=== PATIENT | male | born 1965 | race Caucasian/White ===

== ENCOUNTER 2022-02-23 18:45 | Emergency (ER) | payer SELFPAY ==
[~2022-02-23] VITALS: Ht 162.6 cm; Wt 56.2 kg
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
[2022-02-23] MEDS ORDERED: ONDANSETRON HCL/PF 4 MG/2 ML VIAL ONE (20:18)
[2022-02-23] MEDS ORDERED: TDAP [DIPH/PERTUSSIS/TET] 0.5 ML VIAL IM ONE ×2 (20:18→20:30)
--- NOTE | 2022-02-23 20:19 | NUR ---
PATIENT AT CT
[2022-02-23] MEDS ORDERED: LIDOCAINE 1%-EPI 1:100,000 20 ML VIAL TP ONE (20:30)
[2022-02-23] MEDS ORDERED: ONDANSETRON HCL/PF - ER 4 MG/2 ML VIAL IM ONE (20:30)
[2022-02-23] MEDS ORDERED: LIDOCAINE 1%-EPI 1:100,000 20 ML VIAL ONE (20:32)
--- NOTE | 2022-02-24 08:00 | NUR ---
PATIENT ASLEEP BUT AROUSABLE, AAOX2, BREATHING EVEN AND NON LABORED
--- NOTE | 2022-02-24 10:02 | NUR ---
AMEYA MACK AT BEDSIDE
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
[2022-02-24 15:23] VITALS: BP 110/75
--- NOTE | 2022-02-24 15:24 | NUR ---
Pt awake/appropriate and answer simple questions back to pre admission baseline. Refusing placement at this time and was given resources by AMEYA Irving. Lunch given. Verbal instructions for discharge given eloped prior to signing
[2022-03-01] MEDS ORDERED: VANC125C11 PO (09:25)
== END 2022-02-24 15:24 | disposition home or self-care (01) ==
LOC: ER 18:47
DX: S01.111A Laceration without foreign body of right eyelid and periocular area, initial encounter (principal); F10.129 Alcohol abuse with intoxication, unspecified; W18.39XA Other fall on same level, initial encounter; Y93.89 Activity, other specified; Y92.89 Other specified places as the place of occurrence of the external cause; Y99.8 Other external cause status; Y90.9 Presence of alcohol in blood, level not specified
CPT/HCPCS: 12011; 70450; 82962; 90471; 90715; 96372; 99291; A6403; J2405 ×2; J3490

== ENCOUNTER 2022-02-24 18:49 | Inpatient (IN) | payer MEDICAID ==
[~2022-02-24] VITALS: Ht 162.6 cm; Wt 60.0 kg
[2022-02-24] MEDS ORDERED: IV NS 0.9% 1,000 ML BAG IV ONE (19:30)
[2022-02-24] MEDS ORDERED: TDAP [DIPH/PERTUSSIS/TET] 0.5 ML VIAL IM ONE ×2 (19:30→19:53)
[2022-02-24] MEDS ORDERED: LIDOCAINE 1%-EPI 1:100,000 20 ML VIAL TP ONE (19:30)
[2022-02-24] MEDS ORDERED: LIDOCAINE 1%-EPI 1:100,000 20 ML VIAL ONE (19:53)
--- NOTE | 2022-02-24 20:06 | NUR ---
20G IV LINE ESTABLISHED AT [facility]
[2022-02-24 20:09] LABS: HEMATOCRIT 43 % (39-51); HEMOGLOBIN 15.1 g/dL (13.5-17.5); LYMPHOCYTES # (AUTO) 0.4 K/uL (0.8-4.8); LYMPHOCYTES % (AUTO) 3.2 % (20.0-44.0); MEAN CORPUSCULAR HGB CONC 35 g/dl (31.0-36.0); MEAN CORPUSCULAR VOLUME 81 fL (80-96); MONOCYTES % (AUTO) 7.9 % (2.0-12.0); NEUTROPHILS # (AUTO) 10.9 K/uL (1.8-8.9); NEUTROPHILS % (AUTO) 88.9 % (43.0-81.0); PLATELET COUNT (AUTO) 368 K/uL (150-450); RED BLOOD CELL COUNT(AUTO) 5.26 MIL/uL (4.5-6.0); WHITE BLOOD COUNT (AUTO) 12.3 K/uL (4.3-11.0)
[2022-02-24 20:13] LABS: CALCIUM, SERUM 8.9 mg/dL (8.5-10.1); CREATININE 7.4 mg/dL (0.6-1.3); GLUCOSE 161 mg/dL (74-106); POTASSIUM 3.4 mmol/L (3.5-5.1)
[2022-02-24 20:14] LABS: SERUM AMMONIA 12 umol/L (11-32)
[2022-02-24 20:16] LABS: CARBON DIOXIDE 45 mmol/L (21-32); CHLORIDE 55 mmol/L (98-107); SODIUM SERUM 113 mmol/L (136-145)
[2022-02-24 20:17] LABS: UREA NITROGEN, BLOOD 146 mg/dL (7-18)
[2022-02-24 20:19] LABS: ALANINE AMINOTRANSFERASE 25 U/L (12-78); ALBUMIN 3.2 g/dL (3.4-5.0); ALCOHOL, BLOOD < 3 mg/dL (0-0); ALKALINE PHOSPHATASE 92 U/L (46-116); ASPARTATE AMINOTRANSFERASE 43 U/L (15-37); BILIRUBIN,DIRECT 0.2 mg/dL (0.0-0.2); BILIRUBIN,TOTAL 0.5 mg/dL (0.2-1.0); TOTAL PROTEIN, SERUM 8.1 g/dL (6.4-8.2)
[2022-02-24 20:30] LABS: THYROID STIMULATING HORMONE 0.442 uIU/mL (0.358-3.74)
--- NOTE | 2022-02-24 20:34 | NUR ---
PA AT BEDSIDE FOR SUTURE
--- NOTE | 2022-02-24 21:00 | NUR ---
COVID SWAB AND MRSA SWAB COLLECTED AND SENT TO LAB
--- NOTE | 2022-02-24 21:06 | NUR ---
20G IV LINE ESTABLISHED AT [facility] PER ICU PROTOCOL
--- NOTE | 2022-02-24 21:09 | NUR ---
RN AT BEDSIDE FOR EKG
[2022-02-24] MEDS ORDERED: DEXTROSE 50%-WATER 50 ML DISP.SYRIN ONE (21:19)
[2022-02-24 21:24] LABS: BAND % (MANUAL) 20 % (0.0-5.0); LYMPHOCYTES % (MANUAL) 6 % (16-48); MONOCYTES % (MANUAL) 9 % (0-11.0); NEUTROPHILS % (MANUAL) 65 (42-76)
[2022-02-24] MEDS ORDERED: DEXTROSE 50%-WATER 50 ML DISP.SYRIN IV ONE (21:30)
--- NOTE | 2022-02-24 21:40 | NUR ---
DR REYES TAMAYO PER DR GREENE
[2022-02-24] MEDS ORDERED: LIDOCAINE 2% JEL UROJET 10 ML MM ONE (21:50)
--- NOTE | 2022-02-24 22:04 | NUR ---
FRIEDMAN CATHETER INSERTED
--- NOTE | 2022-02-24 22:15 | NUR ---
URINE COLLECTED AND SENT TO LAB
--- NOTE | 2022-02-24 22:27 | NUR ---
REPORT GIVEN TO YOSSI
[2022-02-24 22:54] LABS: BILIRUBIN,URINE NEGATIVE (NEGATIVE); COLOR,URINE YELLOW (YELLOW); LEUKOCYTE ESTERASE ,URINE NEGATIVE (NEGATIVE); NITRITE, URINE NEGATIVE (NEGATIVE); PROTEIN,URINE TRACE mg/dl (NEGATIVE); UGLUCOSE NEGATIVE (NEGATIVE); UROBILINOGEN,URINE 0.2 EU/dL (0.2)
[2022-02-24] MEDS ORDERED: ZOLPIDEM TARTRATE 5 MG TABLET PO PRN (23:00)
[2022-02-24] MEDS ORDERED: ACETAMINOPHEN 325 MG TABLET PO PRN (23:00)
[2022-02-24] MEDS ORDERED: ONDANSETRON HCL/PF 4 MG/2 ML VIAL IVP PRN (23:00)
[2022-02-24] MEDS ORDERED: MAGNESIUM HYDROXIDE 30 ML UDC PO PRN (23:00)
[2022-02-24] MEDS ORDERED: MAG HYDROX/AL HYDROX/SIMETH 30 ML UDC PO PRN (23:00)
[2022-02-24] MEDS ORDERED: Z GUARD REMEDY 4 OZ OINT TP PRN (23:00)
--- NOTE | 2022-02-24 23:06 | NUR ---
PT TO ICU VIA ALS PROTOCOL.
[2022-02-24 23:20] LABS: CREATININE, URINE 84.8 MG/DL (30.0-125.0); URINE TOTAL PROTEIN 57.5 mg/dL (0-11.9)
[2022-02-24 23:22] LABS: ABG BASE EXCESS 17.2 mmol/L; ABG OXYGEN SATURATION 97.8 % (92.0-98.5); ABG PCO2 49.3 mmHg (35.0-45.0); ABG PH 7.549 (7.350-7.450); ABG PO2 100.7 mmHg (75.0-100.0); AaDO2 40.8 mmHg; COHb 1.2 % (0.5-1.5); MetHb 0.2 % (0.0-1.5); O2Hb 96.4 % (94.0-97.0); SITE, ABG Left Radial; VENT MODE, BG 2 LNC
[2022-02-24 23:25] LABS: BACTERIA,URINE None seen /HPF (None Seen); RBC,URINE 0-2 /HPF (0-2); SQUAMOUS EPITHELIAL CELL,UR Moderate /HPF (None Seen); WBC,URINE 0-2 /HPF (0-3)
[2022-02-24] MEDS: IV NS 0.9% 1,000 ML IV PRN (23:27)
--- NOTE | 2022-02-24 23:35 | NUR ---
RN NOTE RECEIVED PATIENT FROM ER VIA GURNEY. PATIENT OPENS EYES SIMULTANEOUSLY AND ABLE TO FOLLOW COMMAND. PATIENT APPEARS LETHARGIC. ABLE TO ANSWER YES OR NO QUESTIONS. BREATHING EVEN AND UNLABORED ON 2L/MIN VIA NASAL CANNULA. TOLERATING WELL WITH OXYGEN SATURATION OF 97 PERCENT WITH GOOD WAVEFORM ON BEDSIDE MONITOR. SKIN WARM AND DRY, FINGERTIPS COLD. ORAL TEMPERATURE WNL. SKIN ASSESSMENT DONE. WOUNDS CLEANED AND COVERED. WOUND PICTURES FILED IN CHART. INDWELLING FRIEDMAN CATHETER INTACT. DRAINING YELLOW URINE. RIGHT AC 20G AND LEFT AC 20G PIV. INTACT. NO INFILTRATION. PATIENT DENIES PAIN WHEN LAYING STILL BUT NOTED WITH FACIAL GRIMICING WHEN TURNED. PROVIDED WITH BED BATH. BED LOW, IN LOCKED POSITION. CALL LIGHT WITHIN REACH. WILL CONTINUE TO MONITOR NEUROLOGICAL STATUS.
[2022-02-25] VITALS (25 sets, daily range): BP systolic 101–132; BP diastolic 42–78
--- NOTE | 2022-02-25 00:35 | NUR ---
BELONGINGS PLACED IN BEDSIDE CABINET BELONGINGS SHEET UPDATED. FERNANDO IN [place] COUNTED WITH CHARGE NURSE DAPHNE. PER ER. PATIENTS PANTS WERE SOILED AND THROWN AWAY.
[2022-02-25] MEDS: BLOOD SUGAR DIAGNOSTIC 1 EACH STRIP IN SCH ×6 (00:39→21:00)
[2022-02-25 01:11] LABS: CALCIUM, SERUM 7.8 mg/dL (8.5-10.1); CREATININE 6.7 mg/dL (0.6-1.3)
[2022-02-25 04:11] LABS: BASOPHILS % (AUTO) 0.1 % (0.0-2.0); EOSINOPHILS % (AUTO) 0.1 % (0.0-6.0); HEMATOCRIT 37 % (39-51); HEMOGLOBIN 12.7 g/dL (13.5-17.5); LYMPHOCYTES # (AUTO) 0.9 K/uL (0.8-4.8); LYMPHOCYTES % (AUTO) 7.8 % (20.0-44.0); MEAN CORPUSCULAR HGB CONC 35 g/dl (31.0-36.0); MEAN CORPUSCULAR VOLUME 82 fL (80-96); MONOCYTES # (AUTO) 0.8 K/uL (0.1-1.30); MONOCYTES % (AUTO) 6.7 % (2.0-12.0); NEUTROPHILS # (AUTO) 10.1 K/uL (1.8-8.9); NEUTROPHILS % (AUTO) 85.3 % (43.0-81.0); PLATELET COUNT (AUTO) 342 K/uL (150-450); RED BLOOD CELL COUNT(AUTO) 4.45 MIL/uL (4.5-6.0); WHITE BLOOD COUNT (AUTO) 11.8 K/uL (4.3-11.0)
[2022-02-25 04:26] LABS: ALBUMIN 2.7 g/dL (3.4-5.0); BILIRUBIN,TOTAL 0.4 mg/dL (0.2-1.0); CALCIUM, SERUM 7.8 mg/dL (8.5-10.1); CREATININE 6.5 mg/dL (0.6-1.3); MAGNESIUM 2.6 mg/dL (1.8-2.4); TOTAL PROTEIN, SERUM 6.7 g/dL (6.4-8.2)
[2022-02-25 04:37] LABS: POTASSIUM 2.9 mmol/L (3.5-5.1); THYROID STIMULATING HORMONE 0.265 uIU/mL (0.358-3.74)
[2022-02-25 04:40] LABS: PHOSPHORUS 8.2 mg/dL (2.5-4.9)
[2022-02-25] MEDS: IV NS 0.9% 1,000 ML IV PRN (05:01)
--- NOTE | 2022-02-25 05:37 | NUR ---
RN NOTE LAB RESULT OF POTASSIUM 2.9. INFORMED MD BARN HAND, ABHILASH. PER MD, GIVE 60 MEQ IV KCL. NEW ORDER NOTED AND CARRIED OUT.
[2022-02-25] MEDS: POTASSIUM CL. PREMIX PERIPHER. 50 ML IV SCH ×6 (05:58→11:00)
--- NOTE | 2022-02-25 07:21 | NUR ---
WOUND CARE CONSULT: PT PRESENTS WITH MULTIPLE WOUNDS PRESENT ON ADMISSION INCLUDING HEAD LACERATIONS WHICH ARE CLOSED, RT EYEBROW CLOSED LACERATION, DISCOLORATION TO RT SIDE OF FACE, LEFT HIP DEEP TISSUE INJURY IN EVOLUTION, SACRAL DTI IN EVOLUTION, RT HIP DISCOLORATION, LEFT ELBOW SKIN TEAR AND DRY ABRASIONS TO KNEES, ALL PRESENT ON ADMISSION. DR ARIAS NOTIFIED OF SURGICAL CONSULT REQUEST. RECOMMENDATIONS MADE FOR SKIN PROTECTION. DISCUSSED WITH NURSING STAFF. ELDER LEYVA NOTED. IN AGREEMENT WITH PLAN OF CARE.
--- NOTE | 2022-02-25 07:24 | NUR ---
RN OPENING NOTES PT RESTING IN BED A/O X 1-2 GREEK SPEAKING. PT ON 2L VIA NC SATING AT 99%. TELE MONITOR READS SR. PT HAS FRIEDMAN DRAINING CLEAR YELLOW URINE. DIET IS NPO. IV ACCESS NOTED AT RAC 20G, L AC 20G, NS RUNNING AT 125ML/HR. IV POTASSIUM RUNNING. SECOND BAG INFUSING. WILL CONT. TO MONITOR THROUGHOUT SHIFT.
[2022-02-25] MEDS: PANTOPRAZOLE 40 MG VIAL IV SCH (08:08)
--- NOTE | 2022-02-25 08:23 | NUR ---
SWALLOW EVAL COMPLETE WITH ST. ST WILL START PT ON PUREE DIET.
--- NOTE | 2022-02-25 10:45 | NUR ---
APPLIED FOAM HEAD DONUT BEHIND PT'S HEAD TO PROTECT SUTURES.
--- NOTE | 2022-02-25 12:23 | NUR ---
BLOOD SUGAR 116
--- NOTE | 2022-02-25 12:30 | NUR ---
RECEIVED BEDSIDE REPORT FROM SHANNEN FOR CONTINUITY OF PATIENT'S CARE. PATIENT ASLEEP COMFORTABLY ON BED, NO APPARENT DISTRESS NOTED AT THIS TIME. WILL CONTINUE PATIENT MONITORING.
[2022-02-25] MEDS ORDERED: IV NS 0.9% 1,000 ML IV PRN (12:32)
--- NOTE | 2022-02-25 14:30 | NUR ---
PER CHARGE NURSE OKAY TO CANCEL THE TSH LAB DRAW TODAY DUE TO TSH TEST ALREADY DONE IN THE MORNING SCHEDULE. LAB DEPT. STAFF AWARE.
[2022-02-25 15:37] LABS: EOSINOPHIL,URINE None Seen
[2022-02-25 16:02] LABS: CALCIUM, SERUM 7.6 mg/dL (8.5-10.1); CREATININE 5.1 mg/dL (0.6-1.3)
[2022-02-25 16:13] LABS: BAND % (MANUAL) 8 % (0.0-5.0); LYMPHOCYTES % (MANUAL) 15 % (16-48); MONOCYTES % (MANUAL) 9 % (0-11.0); NEUTROPHILS % (MANUAL) 68 (42-76)
--- NOTE | 2022-02-25 16:17 | NUR ---
DR. NUÑEZ MADE AWARE REGARDING RECENT CRITICAL BMP LAB RESULTS : CHLORIDE, CO2, BUN, POTASSIUM AND THE REST OF THE BMP DONE THIS AFTERNOON. AWAITING RESPONSE FROM
--- NOTE | 2022-02-25 16:27 | NUR ---
DR. NUÑEZ WITH NEW ORDER NOTED OF IVF WITH KCL.
[2022-02-25] MEDS ORDERED: Potassium Chloride 10 MEQ in IV NS 0.9% 1,000 ML IV PRN (16:30)
[2022-02-25] MEDS ORDERED: Potassium Chloride 10 MEQ in IV NS 0.9% 1,000 ML IV SCH (16:36)
--- NOTE | 2022-02-25 16:41 | NUR ---
SS consult: SS Consult requested for homelessness and alcohol abuse. The pt. is a 56-year-old male patient who was admitted yesterday earlier int he day for alcohol intoxication and was readmitted as pt. was found with blood on his face per EMR. Per EMR, pt. has Hx. of meth & alcohol use. Pt. was admitted to ICU for Severe hyponatremia, acute encephalopathy, MADONNA per EMR. Upon SS consult, the pt. is Alert & Oriented x 2 and makes good eye contact. The pt. appears disheveled is malodorous and remains calm & cooperative. Pt. denies SI/HI and denies hallucinations. Pt. states that he was having visual and auditory hallucinations days ago. The pt.'s thought process and thought content are WNL. The pt. has Depressed mood & affect. Pt.'s speech is low and quiet. AMEYA explored pt.'s living situation. Patient stated that he has been experiencing homeless for the past 5 months and [facility]. SW explored pt.'s mental health Hx. Patient denies any diagnosis or taking any medication for his mental health. AMEYA explored pt.'s drug & ETOH use. Pt. stated he drinks about 2 beers daily "when i am feeling well". SW completed brief substance abuse intervention. Pt. stated he does not believe alcohol is a problem for him but stated he has fallen before due to intoxication. AMEYA offered referral to alcohol rehab and pt. was receptive. SW will refer pt. to [facility]. Per pt. he is ambulatory and independent with all his ADL's. AMEYA explored pt.'s support system. Pt. states she has no support system. Plan: AMEYA provided pt. with homeless resources and pt. accepted them. Pt. signed homeless waiver and it was placed in the pt.'s chart. AMEYA will refer pt. to [facility] alcohol rehab. Year-round shelters: [place] [address] [place] [place] [address] ; [facility] [facility] [place] [address] [place] [address]; [facility] [facility] Katoemb2654 [facility]. [facility] [address] Hygiene: [facility]: [address] [place] [address]. [place] ; [facility] [address]37 [facility] [place] ; [facility] 6901 [place] Jemma [place] . Food Resources: [place] [facility] at [facility]- [address]00 [address]. [place]; Meet Each Need with Dignity ([facility]) 25340 [facility]; [facility] Food Pantry 4337 [facility]; [facility] 2234 [facility]. Mental Health resources provided: [facility] [address] [place], [place] [phone] ; [facility] Mental Health Center, Inc. 53659 [facility] [address], [place], [place] [phone] ; [facility] Urgent Care Center 79029 [facility] [place], [place] [phone] ; [facility] [address] [place], [place] [phone] Healthcare Clinics: [facility] 6551 [facility], [address] [place]. [place] ; [facility] Clinic 6801 [facility] [address] [place] [address]; [facility], [facility] [place] [address] [place] [address] [phone] Counseling--Outpatient [facility] 4419 [facility], [place] [address] (Specializes in in-depth psychotherapy for emotional distress: anxiety, depression, interpersonal conflicts, life transitions, childhood abuse) [facility] [address]28 [place] [address] (Assist with solving problem marital difficulties, separation & divorce, aging parents, & grief, chronic & terminal illness) [facility] [address] [place] [address] (Deal with loss & grief, anxiety, marital difficulties) Homebound/Mental Health Services 96643 [facility], [address] [place] [address] (Provide in-home mental services to people who are incapable of leaving their homes) Organization for Needs of the Elderly Senior Service/Resource Center 87905 Haris[address] [place] [address] [facility] [address] [place] [address] PSYCHIATRIC OUTPATIENT SERVICES [facility] Partial Hospitalization and Intensive Outpatient Program (Managed Care and [place] Only) [address] [facility] [address]652 [facility] Partial Hospitalization and Outpatient Program 19293 [facility]. [address] [place], [place] [phone] Replaced by [facility] [place] Inc [address]1828 [facility]. [address] [place] [address] [facility] Partial Hospitalization and Outpatient Program [address] [place], [place] [phone] Substance Abuse resources provided included: [facility] Substance Abuse Self-Helpline ([facility]) ; CRI -HELP 78888 [facility]. [place] [address] ; [facility] 45290 [facility] [address] ; [facility] Rehabilitation Program 76291 Chrisney vdMemorial [facility]loan [facility] [address] ; [facility] [place] [address] [facility] [address] ; [facility] 4940 [facility] [address] ; [facility] 909 [facility] [address] ; [facility] Substance Abuse Helpline([facility] ; [facility] Family Counseling ; [facility] Dewitt; [facility]; Cri-Help [place]; I-ADARP Inter Agency Drug Abuse Recovery Marvin [place]; [place] [facility] [place]; [facility] [place]; [facility] [place]; [facility], [facility]. [place]; Alcoholics Anonymous -SFV; Vt-Qnnv-Olhxoce ; Marijuana Anonymous -SFV; Narcotics Anonymous [email or web address];
[2022-02-25 16:51] LABS: BILIRUBIN,URINE NEGATIVE (NEGATIVE); COLOR,URINE YELLOW (YELLOW); LEUKOCYTE ESTERASE ,URINE TRACE (NEGATIVE); NITRITE, URINE NEGATIVE (NEGATIVE); PROTEIN,URINE NEGATIVE (NEGATIVE); UGLUCOSE NEGATIVE (NEGATIVE); UROBILINOGEN,URINE 0.2 EU/dL (0.2)
[2022-02-25 16:54] LABS: BACTERIA,URINE RARE /HPF (None Seen)
[2022-02-25] MEDS: Potassium Chloride 10 MEQ in IV NS 0.9% 1,000 ML IV SCH ×2 (17:00→18:19)
--- NOTE | 2022-02-25 17:10 | NUR ---
[place] HARVESTING SUPERVISOR RECEIVING NOTES RECEIVED PATIENT IN STABLE CONDITION, V/S: BP 112/60, HR SINUS RHYTHM 72, T 98.2, O2 98% ON 2 LPM O2 VIA NASAL CANNULA. A/O X 2, ABLE TO MAKE NEEDS KNOWN. PATIENT WITH MULTIPLE SKIN ABRASIONS NOTED AND DOCUMENTED. L AC # 20 G AND R AC # 20 G SL CLEAN, INTACT, AND FLUSHING WELL. TELE MONITOR IN PLACE READING NSR 72. FRIEDMAN CATHETER IN PLACE DRAINING CLEAR YELLOW URINE TO GRAVITY. SAFETY MEASURES IN PLACE: BED IN LOWEST LOCKED POSITION, SIDE RAILS UP X 2, CALL LIGHT WITHIN REACH. WILL CONTINUE TO MONITOR.
--- NOTE | 2022-02-25 17:10 | NUR ---
PATIENT WAS TRANSFERRED TO TELEMETRY UNIT -ROOM 313 IN STABLE CONDITION, NO APPARENT DISTRESS NOTED, BEDSIDE REPORT GIVEN TO BRENDA-RN FOR CONTINUITY OF CARE.
--- NOTE | 2022-02-25 19:00 | NUR ---
LOGGING CREW SUPERVISOR CLOSING NOTES PATIENT LAYING IN BED, A/O X 2, ABLE TO MAKE NEEDS KNOWN, TOLERATING WELL ON 2 LPM O2 VIA NASAL CANNULA. R AC # 20 SL CLEAN, INTACT, AND FLUSHING WELL. L AC # 20 G IV CLEAN, INTACT, AND INFUSING NS W 10 mEq POTASSIUM @ 150 ML/HR. PATIENT WITH 350 ML CLEAR YELLOW URINE OUTPUT NOTED AT END OF SHIFT. TELE MONITOR IN PLACE READING NSR 71. SAFETY MEASURES IN PLACE: BED IN LOWEST LOCKED POSITION, SIDE RAILS UP X 2, CALL LIGHT WITHIN REACH. ALL NEEDS MET. WILL ENDORSE TO FEATURE WRITER FOR SYDNIE.
--- NOTE | 2022-02-25 19:15 | NUR ---
CREDIT CARD ANALYST OPENING NOTES: RECEIVED PATIENT IN BED, ASLEEP, EASILY AROUSABLE. NO S/S OF DISTRESS NOTED. NO COMPLAIN OF PAIN. CALL LIGHT WITHIN REACH. BED ALARM ON. BED IN LOWEST AND LOCKED POSITION.HOB ELEVATED. WITH FRIEDMAN CATHETER INTACT. SEIZURE PRECAUTION. WITH TELE MONITOR WITH SR.
--- NOTE | 2022-02-25 22:17 | NUR ---
blood sugar checked= 96, no insulin given.
[2022-02-26] MEDS: BLOOD SUGAR DIAGNOSTIC 1 EACH STRIP IN SCH ×4 (01:00→12:26)
[2022-02-26] MEDS: Potassium Chloride 10 MEQ in IV NS 0.9% 1,000 ML IV SCH ×5 (01:42→21:21)
[2022-02-26 04:00] VITALS: BP 117/62
[2022-02-26 04:27] VITALS: BP 117/62
--- NOTE | 2022-02-26 05:21 | NUR ---
blood sugar newysjs=140, no insulin given.
--- NOTE | 2022-02-26 06:43 | NUR ---
BOTANY TEACHER CLOSING NOTES: PATIENT IN BED, ASLEEP, EASILY AROUSABLE. NO S/S OF DISTRESS NOTED. NO COMPLAIN OF PAIN. CALL LIGHT WITHIN REACH. BED ALARM ON. BED IN LOWEST AND LOCKED POSITION. HOB ELEVATED. HEELS OFFLOADED. TURNED AND REPOSITIONED [id number].
[2022-02-26 06:56] LABS: CALCIUM, SERUM 7.8 mg/dL (8.5-10.1); CREATININE 3.5 mg/dL (0.6-1.3); POTASSIUM 2.9 mmol/L (3.5-5.1)
--- NOTE | 2022-02-26 07:00 | NUR ---
CHASER TAR OPENING NOTES PATIENT LAYING IN BED, A/O X 2, ABLE TO MAKE NEEDS KNOWN, TOLERATING WELL ON 2 LPM O2 VIA NASAL CANNULA. R AC # 20 SL CLEAN, INTACT, AND FLUSHING WELL. L AC # 20 G IV CLEAN, INTACT, AND INFUSING NS W 10 mEq POTASSIUM @ 150 ML/HR. TELE MONITOR IN PLACE READING NSR 71. SAFETY MEASURES IN PLACE: BED IN LOWEST LOCKED POSITION, SIDE RAILS UP X 2, CALL LIGHT WITHIN REACH. WILL CONTINUE TO MONITOR.
--- NOTE | 2022-02-26 07:22 | NUR ---
INFORMED DR REESE RE: BUN 100.
--- NOTE | 2022-02-26 07:51 | NUR ---
PATIENT FOUND RESTING WITHOUT DISTRESS ON 2 L NC WITH SAT OF 97% . NO SOB NOTED. Addendum: 02/26/22 at 0752 by DEBORAH MERAZ RT Amended: Links added.
[2022-02-26 08:00] VITALS: BP 123/66
[2022-02-26] MEDS: PANTOPRAZOLE 40 MG VIAL IV SCH (08:43)
[2022-02-26] MEDS ORDERED: DEXTROSE 50%-WATER 50 ML DISP.SYRIN IV PRN (13:30)
[2022-02-26 16:00] VITALS: BP 120/64
[2022-02-26] MEDS ORDERED: Potassium Chloride 10 MEQ in IV NS 0.9% 1,000 ML IV PRN (17:30)
[2022-02-26] MEDS: BLOOD SUGAR DIAGNOSTIC 1 EACH STRIP VI SCH ×2 (17:46→21:34)
--- NOTE | 2022-02-26 19:00 | NUR ---
GROCERY DELIVERER CLOSING NOTES PATIENT LAYING IN BED, A/O X 2, ABLE TO MAKE NEEDS KNOWN, TOLERATING WELL ON 2 LPM O2 VIA NASAL CANNULA. R AC # 20 SL CLEAN, INTACT, AND FLUSHING WELL. L AC # 20 G IV CLEAN, INTACT, AND INFUSING NS W 10 mEq POTASSIUM @ 150 ML/HR. TELE MONITOR IN PLACE. SAFETY MEASURES IN PLACE: BED IN LOWEST LOCKED POSITION, SIDE RAILS UP X 2, CALL LIGHT WITHIN REACH. ALL NEEDS MET. WILL ENDORSE TO ASSEMBLER FILTERS FOR SYDNIE. Addendum: 02/26/22 at 1955 by BRENDA MUNOZ RN PATIENT NOTED WITH 800 ML CLEAR, YELLOW URINE OUTPUT VIA FRIEDMAN CATHETER AT END OF SHIFT. 350 ML CLEAR YELLOW URINE EMPTIED AT APPROXIMATELY 9 AM
--- NOTE | 2022-02-26 19:20 | NUR ---
ROLL ICER OPENING NOTES: RECEIVED PATIENT IN BED, AWAKE, A/O X4. NO S/S OF DISTRESS NOTED. NO COMPLAIN OF PAIN. CALL LIGHT WITHIN REACH. BED ALARM ON. BED IN LOWEST AND LOCKED POSITION. PATIENT IS HAVING DIARRHEA. WITH BEDSIDE COMMODE.WITH O2 AT 3L/MIN NASAL CANNULA. WITH FRIEDMAN CATHETER INTACT. ON TELE MONITOR WITH SR62.
[2022-02-26 20:00] VITALS: BP 116/65
[2022-02-26] MEDS: *INSULIN REGULAR(HUMULIN R)HUM 100 UNIT/ML VIAL SQ PRN (21:34)
--- NOTE | 2022-02-26 21:34 | NUR ---
BLOOD SUGAR [id number], NO INSULIN GIVEN.
[2022-02-27] VITALS: BP 112/52
--- NOTE | 2022-02-27 01:44 | NUR ---
PATIENT HAD 3X DIARRHEA NOW, STARTED TODAY IN THE DAYSHIFT, INFORMED DR REESE.
[2022-02-27 04:00] VITALS: BP 106/56
[2022-02-27] MEDS: Potassium Chloride 10 MEQ in IV NS 0.9% 1,000 ML IV SCH ×3 (04:15→19:40)
[2022-02-27 04:20] LABS: BASOPHILS % (AUTO) 0.3 % (0.0-2.0); EOSINOPHILS % (AUTO) 1.5 % (0.0-6.0); HEMATOCRIT 30 % (39-51); HEMOGLOBIN 10.2 g/dL (13.5-17.5); LYMPHOCYTES # (AUTO) 1.1 K/uL (0.8-4.8); LYMPHOCYTES % (AUTO) 12.5 % (20.0-44.0); MEAN CORPUSCULAR HGB CONC 34 g/dl (31.0-36.0); MEAN CORPUSCULAR VOLUME 85 fL (80-96); NEUTROPHILS # (AUTO) 6.5 K/uL (1.8-8.9); NEUTROPHILS % (AUTO) 74.7 % (43.0-81.0); PLATELET COUNT (AUTO) 343 K/uL (150-450); RED BLOOD CELL COUNT(AUTO) 3.55 MIL/uL (4.5-6.0); WHITE BLOOD COUNT (AUTO) 8.7 K/uL (4.3-11.0)
[2022-02-27 04:30] LABS: CALCIUM, SERUM 7.7 mg/dL (8.5-10.1)
[2022-02-27] MEDS: BLOOD SUGAR DIAGNOSTIC 1 EACH STRIP VI SCH ×4 (06:36→22:00)
[2022-02-27] MEDS: INSULIN REGULAR, HUMAN 100 UNIT/ML 3 ML VIAL SQ PRN (06:38)
--- NOTE | 2022-02-27 07:00 | NUR ---
CHAPLAINCY OPENING NOTES PATIENT LAYING IN BED, A/O X 3, ABLE TO MAKE NEEDS KNOWN, TOLERATING WELL ON 2 LPM O2 VIA NASAL CANNULA. R AC # 20 SL CLEAN, INTACT, AND FLUSHING WELL. L AC # 20 G IV CLEAN, INTACT, AND INFUSING NS W 10 mEq POTASSIUM @ 150 ML/HR. TELE MONITOR IN PLACE READING NSR 64. SAFETY MEASURES IN PLACE: BED IN LOWEST LOCKED POSITION, SIDE RAILS UP X 2, CALL LIGHT WITHIN REACH. WILL CONTINUE TO MONITOR.
[2022-02-27 08:00] VITALS: BP 109/61
[2022-02-27] MEDS: PANTOPRAZOLE 40 MG TABLET.DR PO SCH (09:18)
[2022-02-27] MEDS ORDERED: POTASSIUM CHLORIDE 20 MEQ TAB.PRT.SR PO SCH (11:00)
[2022-02-27] MEDS ORDERED: POTASSIUM CHLORIDE 10 MEQ TABLET.SA PO ONE (11:00)
[2022-02-27 16:00] VITALS: BP 113/63
--- NOTE | 2022-02-27 19:00 | NUR ---
MS RN CLOSING NOTES PATIENT LAYING IN BED IN LOW LOCKED POSITION CALL LIGHTS WITHIN REACH, NO COMPLAIN OF PAIN AND DISCOMFORT AT THIS TIME ON O2 INHALATION AT 2LPM SATURATING WELL, NO RESP DISTRESS OBSERVED, WITH IV LINE AT RAC#20 WITH KCL 10MEQ @150ML PER HOUR INFUSING WELL, PATIENT IS MONITORED FOR CDIFF, STOOL SAMPLE SENT TO LAB TODAY. FRIEDMAN CATHETER WAS REMOVED TODAY. ALL NEEDS MET. WILL ENDORSE TO SECRETARY TO THE VICE PRESIDENT FOR SYDNIE.
--- NOTE | 2022-02-27 19:45 | NUR ---
MS RN OPENING NOTE: RECEIVED PATIENT AWAKE IN BED BED IN LOW POSITION CALL LIGHTS WITHIN REACH, NO COMPLAIN OF PAIN AND DISCOMFORT AT THIS TIME ON O2 INHALATION AT 2LPM SATURATING WELL, NO RESP DISTRESS OBSERVED, WITH IV LINE AT RAC#20 WITH KCL 10MEQ @150ML PER HOUR INFUSING WELL, PATIENT IS MONITORED FOR CDIFF, PATIENT KEPT CLEAN AND DRY ALL NEEDS MET WILL CONTINUE TO MONITOR.
[2022-02-27 21:08] VITALS: BP 130/69
--- NOTE | 2022-02-27 22:36 | NUR ---
RN NOTES: BS-124 NO INSULIN GIVEN- OUT OF PARAMETER
[2022-02-28] MEDS: Potassium Chloride 10 MEQ in IV NS 0.9% 1,000 ML IV SCH ×4 (00:43→21:57)
[2022-02-28 04:05] LABS: BASOPHILS % (AUTO) 0.3 % (0.0-2.0); EOSINOPHILS % (AUTO) 1.3 % (0.0-6.0); HEMATOCRIT 30 % (39-51); HEMOGLOBIN 10.4 g/dL (13.5-17.5); LYMPHOCYTES # (AUTO) 1.6 K/uL (0.8-4.8); LYMPHOCYTES % (AUTO) 18.6 % (20.0-44.0); MEAN CORPUSCULAR HGB CONC 34 g/dl (31.0-36.0); MEAN CORPUSCULAR VOLUME 86 fL (80-96); MONOCYTES # (AUTO) 1.2 K/uL (0.1-1.30); MONOCYTES % (AUTO) 13.9 % (2.0-12.0); NEUTROPHILS # (AUTO) 5.7 K/uL (1.8-8.9); NEUTROPHILS % (AUTO) 65.9 % (43.0-81.0); PLATELET COUNT (AUTO) 396 K/uL (150-450); RED BLOOD CELL COUNT(AUTO) 3.54 MIL/uL (4.5-6.0); WHITE BLOOD COUNT (AUTO) 8.6 K/uL (4.3-11.0)
[2022-02-28 04:25] LABS: ALBUMIN 1.9 g/dL (3.4-5.0); BILIRUBIN,TOTAL 0.2 mg/dL (0.2-1.0); CALCIUM, SERUM 7.2 mg/dL (8.5-10.1); CREATININE 1.5 mg/dL (0.6-1.3); PHOSPHORUS 1.4 mg/dL (2.5-4.9); POTASSIUM 3.5 mmol/L (3.5-5.1); TOTAL PROTEIN, SERUM 5.1 g/dL (6.4-8.2)
[2022-02-28 04:30] LABS: MAGNESIUM 1.2 mg/dL (1.8-2.4)
--- NOTE | 2022-02-28 04:50 | NUR ---
RN NOTES: RECEIVED A CRITICAL LAB RESULT OF MAGNESIUM V-1.2 NOTIFY HOSPITALIST AND ORDER MAGNESIUM OXIDE 800MG PO ONE TTIME NOTED AND CARRY OUT
[2022-02-28] MEDS ORDERED: MAGNESIUM OXIDE 400 MG TABLET PO ONE (05:00)
--- NOTE | 2022-02-28 06:34 | NUR ---
RN CLOSING NOTES: PATIENT SLEEP IN BED COMFORTABLY, BED IN LOW POSITION CALL LIGHTS WITHIN REACH, NO COMPLAIN OF PAIN AND DISCOMFORT AT THIS TIME, ON O2 INHALATION AT 3LPM SATURATING WELL, ON ILEOSTOMY TUBE CHANGE CLEANSE AND DRY, ON FRIEDMAN CATHETER-1250 WITH IV LINE AT OMAR ML WITH ONGOING NSS@75ML/HOUR INFUSING WELL, PATIENT KEPT CLEAN AND DRY ALL NEEDS MET WILL CONTINUE TO MONITOR. Addendum: 02/28/22 at 0636 by DANIELLE SAMSON RN RN NOTES: WRONG POSTING CLOSING INTENDED FOR 323-2
--- NOTE | 2022-02-28 06:37 | NUR ---
RN CLOSING NOTES: PATIENT SLEEP IN BED COMFORTABLY AROUSABLE TO VERBAL STIMULI, BED IN LOW POSITION CALL LIGHTS WITHIN REACH, NO COMPLAIN OF PAIN AND DISCOMFORT AT THIS TIME ON O2 INHALATION AT 3LPM SATURATING WELL, WITH IV LINE AT LAC#20 WITH ONGOING POTASSIUM CHLORIDE 10MEQ ON [id number] AT 150ML/HR, INFUSING WELL, PATIENT KEPT CLEAN AND DRY ALL NEEDS MET ENDORSE TO INCOMING SHIFT.
--- NOTE | 2022-02-28 07:30 | NUR ---
MS RN OPENING NOTES RECEIVED PATIENT AWAKE AND COMFORTABLY LYING IN BED. A/O X 4, UKRAINIAN SPEAKER. NO RESP DISTRESS AND DISCOMFORT AT THIS MOMENT; PATIENT IS IN 2LPM AND SATURATING WELL. NO COMPLAIN OF PAIN AND DISCOMFORT AT THIS TIME. SAFETY MEASURES INITIATED: BED IN LOW POSITION, CALL LIGHTS WITHIN REACH. WITH IV LINE AT RAC#20 WITH [id number] @150ML PER HOUR INFUSING WELL. PATIENT HAD A BOWEL MOVEMENT: LOOSE AND SMELLY; MONITORED FOR C-DIFF. PATIENT KEPT CLEAN AND DRY. ALL NEEDS MET. WILL CONTINUE TO MONITOR FOR SYDNIE.
[2022-02-28] MEDS: PANTOPRAZOLE 40 MG TABLET.DR PO SCH (08:06)
[2022-02-28] MEDS: BLOOD SUGAR DIAGNOSTIC 1 EACH STRIP VI SCH ×4 (08:33→22:09)
--- NOTE | 2022-02-28 08:36 | NUR ---
PATIENT ON 2 L NC O2 WITHOUT DISTRESS. IN STABLE CONDITION Addendum: 02/28/22 at 0837 by DEBORAH MERAZ RT Amended: Links added.
[2022-02-28 08:39] VITALS: BP 115/66
[2022-02-28] MEDS ORDERED: K PHOS NEUTRAL 250 MG TABLET PO ONE (11:00)
[2022-02-28] MEDS: Magnesium 1GM/D5W 100ML PREMIX 100 ML IV SCH ×2 (11:34→13:53)
[2022-02-28] MEDS ORDERED: PANT40TA49 PO (11:59)
[2022-02-28] MEDS ORDERED: ACET325T53 PO (11:59)
[2022-02-28] MEDS ORDERED: NUTR113P PO (11:59)
[2022-02-28 16:39] VITALS: BP 112/67
[2022-02-28] MEDS: VANCOMYCIN HCL 125 MG/2.5 ML ORAL.SUSP PO SCH (18:25)
[2022-02-28] MEDS: INSULIN REGULAR, HUMAN 100 UNIT/ML 3 ML VIAL SQ PRN (18:34)
--- NOTE | 2022-02-28 19:05 | NUR ---
MS RN OPENING NOTES: RECEIVED PATIENT IN BED, AWAKE, A/O X4. NO S/S OF DISTRESS NOTED. NO COMPLAIN OF PAIN. CALL LIGHT WITHIN REACH. BED ALARM ON. BED IN LOWEST AND LOCKED POSITION. CONTACT ISOLATION FOR C-DIFF. URINAL AT THE BEDSIDE.
--- NOTE | 2022-02-28 19:37 | NUR ---
MS RN CLOSING NOTES PATIENT IS AWAKE AND COMFORTABLY LYING IN BED. A/O X 4, TURKISH SPEAKER. NO RESP DISTRESS AND DISCOMFORT AT THIS MOMENT; PATIENT IS IN 2LPM AND SATURATING WELL. NO COMPLAIN OF PAIN AND DISCOMFORT AT THIS TIME. PATIENT'S D/C ORDER ON HOLD D/T C-DIFF, DR. BAUM WAS INFORMED. SAFETY MEASURES INITIATED: BED IN LOW POSITION, CALL LIGHTS WITHIN REACH. WITH IV LINE AT RAC#20 WITH [id number] @150ML PER HOUR INFUSING WELL. PATIENT HAD A 1 BOWEL MOVEMENT IN MY SHIFT: LOOSE AND SMELLY. PATIENT KEPT CLEAN AND DRY. ALL NEEDS MET. WILL ENDORSE TO INCOMING SHIFT FOR SYDNIE.
[2022-02-28 20:00] VITALS: BP 107/58
[2022-02-28] MEDS: *INSULIN REGULAR(HUMULIN R)HUM 100 UNIT/ML VIAL SQ PRN (22:09)
--- NOTE | 2022-02-28 23:42 | NUR ---
YULISSA CALL INSERTED AN IV ON THE LEFT FOREARM G20. Addendum: 03/01/22 at 0033 by HÉCTOR OGDNE RN LEFT WRIST G20
[2022-03-01] MEDS: VANCOMYCIN HCL 125 MG/2.5 ML ORAL.SUSP PO SCH ×6 (00:24→23:35)
[2022-03-01] MEDS: Potassium Chloride 10 MEQ in IV NS 0.9% 1,000 ML IV SCH ×3 (05:43→19:07)
[2022-03-01] MEDS: BLOOD SUGAR DIAGNOSTIC 1 EACH STRIP VI SCH ×4 (06:54→21:33)
[2022-03-01] MEDS: INSULIN REGULAR, HUMAN 100 UNIT/ML 3 ML VIAL SQ PRN ×2 (06:55→12:46)
[2022-03-01 08:00] VITALS: BP 108/72
--- NOTE | 2022-03-01 08:00 | NUR ---
RECEIVED PT. IN AM,VITALS STABLE,IN AND OUT OF BED OFTEN.
[2022-03-01 08:10] LABS: CALCIUM, SERUM 7.2 mg/dL (8.5-10.1); CREATININE 1.1 mg/dL (0.6-1.3); PHOSPHORUS 1.8 mg/dL (2.5-4.9); POTASSIUM 3.4 mmol/L (3.5-5.1)
[2022-03-01 08:22] LABS: MAGNESIUM 1.2 mg/dL (1.8-2.4)
[2022-03-01] MEDS: MAGNESIUM OXIDE 400 MG TABLET PO SCH ×2 (08:45→10:05)
[2022-03-01] MEDS: PANTOPRAZOLE 40 MG TABLET.DR PO SCH (08:45)
[2022-03-01] MEDS ORDERED: POTASSIUM CHLORIDE 20 MEQ TAB.PRT.SR PO SCH (09:00)
[2022-03-01] MEDS ORDERED: VANC125C11 PO (09:25)
[2022-03-01] MEDS ORDERED: K PHOS NEUTRAL 250 MG TABLET PO ONE (10:00)
--- NOTE | 2022-03-01 11:53 | NUR ---
lt wrist hep lock non functional,removed.
[2022-03-01] MEDS ORDERED: POTASSIUM CHLORIDE 20 MEQ TAB.PRT.SR PO ONE (12:00)
--- NOTE | 2022-03-01 13:13 | NUR ---
iv leaking and removed,new start lt. forearm 22 angio.
[2022-03-01 16:00] VITALS: BP 111/81
--- NOTE | 2022-03-01 18:00 | NUR ---
HAD PHOS.MG AND POTASSIUM REPLACEMENT.
--- NOTE | 2022-03-01 19:20 | NUR ---
MS RN OPENING NOTES: RECEIVED PATIENT IN BED, AWAKE, A/O X4. NO S/S OF DISTRESS NOTED. NO COMPLAIN OF PAIN. CALL LIGHT WITHIN REACH. BED ALAM ON. BED IN LOWEST AND LOCKED POSITION. CONTACT ISOLATION FOR C-DIFF. SIGN POSTED.
[2022-03-01 20:00] VITALS: BP 125/48
[2022-03-01] MEDS: *INSULIN REGULAR(HUMULIN R)HUM 100 UNIT/ML VIAL SQ PRN (21:33)
--- NOTE | 2022-03-01 21:33 | NUR ---
blood sugar checked= 95, no insulin given.
[2022-03-02] MEDS: Potassium Chloride 10 MEQ in IV NS 0.9% 1,000 ML IV SCH ×3 (02:41→08:38)
[2022-03-02] MEDS: VANCOMYCIN HCL 125 MG/2.5 ML ORAL.SUSP PO SCH ×3 (06:22→17:08)
[2022-03-02] MEDS: INSULIN REGULAR, HUMAN 100 UNIT/ML 3 ML VIAL SQ PRN (06:33)
[2022-03-02] MEDS: BLOOD SUGAR DIAGNOSTIC 1 EACH STRIP VI SCH ×4 (06:34→21:51)
--- NOTE | 2022-03-02 06:34 | NUR ---
BLOOD SUGAR [id number], NO INSULIN GIVEN.
--- NOTE | 2022-03-02 06:55 | NUR ---
RECEIVED A CRITICAL LAB FOR MAGNESIUM=1.0 AND ENDORSED TO KIRSTY MULLEN.
[2022-03-02 07:00] LABS: BASOPHILS % (AUTO) 0.7 % (0.0-2.0); EOSINOPHILS % (AUTO) 1.4 % (0.0-6.0); HEMATOCRIT 28 % (39-51); HEMOGLOBIN 9.8 g/dL (13.5-17.5); LYMPHOCYTES # (AUTO) 1.6 K/uL (0.8-4.8); MEAN CORPUSCULAR HGB CONC 35 g/dl (31.0-36.0); MEAN CORPUSCULAR VOLUME 86 fL (80-96); MONOCYTES # (AUTO) 0.7 K/uL (0.1-1.30); MONOCYTES % (AUTO) 11.5 % (2.0-12.0); NEUTROPHILS # (AUTO) 3.9 K/uL (1.8-8.9); NEUTROPHILS % (AUTO) 61.4 % (43.0-81.0); PLATELET COUNT (AUTO) 454 K/uL (150-450); WHITE BLOOD COUNT (AUTO) 6.3 K/uL (4.3-11.0)
[2022-03-02 07:05] LABS: ALBUMIN 1.9 g/dL (3.4-5.0); BILIRUBIN,TOTAL 0.2 mg/dL (0.2-1.0); CALCIUM, SERUM 6.9 mg/dL (8.5-10.1); CREATININE 0.9 mg/dL (0.6-1.3); POTASSIUM 3.6 mmol/L (3.5-5.1); TOTAL PROTEIN, SERUM 5.2 g/dL (6.4-8.2)
[2022-03-02 08:00] VITALS: BP 144/70
--- NOTE | 2022-03-02 08:13 | NUR ---
RN OPENING NOTE PATIENT RECEIVED IN BED, AO X 4, ABLE TO RESPONDS ALL STIMULI. IN NO ACUTE DISTRESS NOTED. RESPIRATORY EVEN AND UNLABORED ON ROOM AIR. SKIN IS WARM TO TOUCH, KEEP CLEAN/DRY. KEPT ELEVATED HOB FOR ENSURE AIRWAY AND ASPIRATION PRECAUTION, ALSO LOWEST POSITION OF THE BED, S/R UP X 3, BED ALARM IS ON AT ALL THE TIMES. ALL SAFETY PRECAUTION APPLIED. CALL LIGHT WITHIN REACH, WILL CONTINUE TO MONITOR.
[2022-03-02] MEDS: MAGNESIUM OXIDE 400 MG TABLET PO SCH ×3 (08:37→16:17)
[2022-03-02] MEDS: PANTOPRAZOLE 40 MG TABLET.DR PO SCH (08:38)
[2022-03-02] MEDS: POTASSIUM CHLORIDE 20 MEQ TAB.PRT.SR PO SCH (08:38)
--- NOTE | 2022-03-02 09:29 | NUR ---
CLARIFIED WITH PHARMACY THAT DUPLICATE MAGNESIUM ORDER AT 0800 AND 0900, WILL HOLD MAGNESIUM AT 0900.
[2022-03-02] MEDS ORDERED: K PHOS NEUTRAL 250 MG TABLET PO ONE (15:30)
[2022-03-02 15:59] VITALS: BP 132/81
[2022-03-02] MEDS: *INSULIN REGULAR(HUMULIN R)HUM 100 UNIT/ML VIAL SQ PRN ×2 (17:07→21:52)
[2022-03-02 17:42] LABS: ALBUMIN 1.9 g/dL (3.4-5.0); BILIRUBIN,TOTAL 0.1 mg/dL (0.2-1.0); CALCIUM, SERUM 6.6 mg/dL (8.5-10.1); POTASSIUM 3.8 mmol/L (3.5-5.1); TOTAL PROTEIN, SERUM 5.4 g/dL (6.4-8.2)
--- NOTE | 2022-03-02 18:14 | NUR ---
RN CLOSING NOTE PATIENT IN BED, RESTING, IN NO ACUTE DISTRESS NOTED. RESPIRATORY EVEN AND UNLABORED ON ROOM AIR. SKIN IS WARM TO TOUCH, KEEP CLEAN/DRY, INTACT IV SITE. PATIENT STILL NOTED WATERY LOOSE BM X 2 DURING DAY SHIFT. KEPT ELEVATED HOB FOR ENSURE AIRWAY AND ASPIRATION PRECAUTION. ALSO LOWEST POSITION OF THE BED FOR SAFETY. BED ALARM IS ON AT ALL THE TIMES FOR SAFETY. CALL LIGHT WITHIN REACH, WILL ENDORSE TO SOLDERER ASSEMBLY REPAIR.
--- NOTE | 2022-03-02 19:30 | NUR ---
MS RN OPENING NOTES RECEIVED PT LYING IN BED AWAKE. A/O X4. NOT IN APPARENT DISTRESS. BREATHING EVEN AND NON-LABORED ON ROOM AIR. DENIES PAIN AT THIS TIME. HAS LEFT FOREARM IV ACCESS #22G WITH KCL 10MEQ MIXED IN NS RUNNING AT 150 ML/HR. NO S/S OF INFILTRATION NOTED. SAFETY PRECAUTIONS IN PLACE. WILL CONTINUE PLAN OF CARE.
[2022-03-02 20:00] VITALS: BP 127/76
--- NOTE | 2022-03-02 21:52 | NUR ---
MS RN NOTES BS 124 NO INSULIN COVERAGE GIVEN
[2022-03-02] MEDS ORDERED: MAGNESIUM OXIDE 400 MG TABLET PO SCH (22:00)
[2022-03-02] MEDS: Potassium Chloride 10 MEQ in IV NS 0.9% 1,000 ML IV PRN (23:38)
[2022-03-03] MEDS: VANCOMYCIN HCL 125 MG/2.5 ML ORAL.SUSP PO SCH ×3 (00:05→12:42)
[2022-03-03] MEDS: Potassium Chloride 10 MEQ in IV NS 0.9% 1,000 ML IV PRN (06:33)
[2022-03-03 06:34] LABS: BASOPHILS # (AUTO) 0.1 K/uL (0.0-0.2); BASOPHILS % (AUTO) 1.2 % (0.0-2.0); EOSINOPHILS % (AUTO) 1.1 % (0.0-6.0); HEMATOCRIT 29 % (39-51); HEMOGLOBIN 9.9 g/dL (13.5-17.5); LYMPHOCYTES # (AUTO) 1.8 K/uL (0.8-4.8); LYMPHOCYTES % (AUTO) 28.6 % (20.0-44.0); MEAN CORPUSCULAR HGB CONC 34 g/dl (31.0-36.0); MEAN CORPUSCULAR VOLUME 85 fL (80-96); MONOCYTES # (AUTO) 0.5 K/uL (0.1-1.30); MONOCYTES % (AUTO) 8.2 % (2.0-12.0); NEUTROPHILS # (AUTO) 3.8 K/uL (1.8-8.9); NEUTROPHILS % (AUTO) 60.9 % (43.0-81.0); PLATELET COUNT (AUTO) 507 K/uL (150-450); RED BLOOD CELL COUNT(AUTO) 3.42 MIL/uL (4.5-6.0); WHITE BLOOD COUNT (AUTO) 6.2 K/uL (4.3-11.0)
[2022-03-03] MEDS: BLOOD SUGAR DIAGNOSTIC 1 EACH STRIP VI SCH ×2 (06:42→12:41)
[2022-03-03] MEDS: INSULIN REGULAR, HUMAN 100 UNIT/ML 3 ML VIAL SQ PRN (06:42)
--- NOTE | 2022-03-03 06:42 | NUR ---
MS RN NOTES BS 91. NO INSULIN COVERAGE GIVEN.
--- NOTE | 2022-03-03 07:08 | NUR ---
WOUND CARE CONSULT: PT SEEN FOR CONSULT WHICH READ BILATERAL LOWER EXTREMITY CELLULITIS, HOWEVER, NO SIGN OF CELLULITIS NOTED TO LOWER EXTREMITIES. PT DENIES TENDERNESS AND THERE IS NO REDNESS OR SWELLING NOTED. BILATERAL KNEE DISCOLORATION NOTED WHICH WAS PRESENT ON ADMISSION. PT FOLLOWED BY SURGICAL TEAM FOR HIP AND SACRAL WOUNDS, PRESENT ON ADMISSION. DISCUSSED SKIN PROTECTION WITH NURSING STAFF. MD IN AGREEMENT WITH PLAN OF CARE.
[2022-03-03 07:10] LABS: BILIRUBIN,TOTAL 0.2 mg/dL (0.2-1.0); CALCIUM, SERUM 6.8 mg/dL (8.5-10.1); CREATININE 0.9 mg/dL (0.6-1.3); PHOSPHORUS 2.1 mg/dL (2.5-4.9); POTASSIUM 3.8 mmol/L (3.5-5.1); TOTAL PROTEIN, SERUM 5.6 g/dL (6.4-8.2)
--- NOTE | 2022-03-03 07:25 | NUR ---
MS RN CLOSING NOTES PT LYING IN BED ASLEEP. EASY TO AROUSE. A/O X4. NO SOB OR NOTED. TOLERATING ROOM AIR WELL. AFEBRILE. NOT IN ACUTE DISTRESS. NO C/O PAIN OR DISCOMFORT. NO EPISODE OF DIARRHEA. HAS LEFT FOREARM IV ACCESS #22G WITH KCL 10MEQ MIXED IN NS RUNNING AT 150 ML/HR. INTACT, PATENT AND FLUSHING. URINAL ON BEDSIDE WITH CLEAR YELLOW URINE. ALL NEEDS ATTENDED. SAFETY MEASURES IN PLACE: BED LOW AND LOCKED, SIDE RAILS UP X2, CALL LIGHT WITHIN REACH.
[2022-03-03 07:39] LABS: MAGNESIUM 0.9 mg/dL (1.8-2.4)
[2022-03-03 08:00] VITALS: BP 151/75
--- NOTE | 2022-03-03 08:04 | NUR ---
RN OPENING NOTE PATIENT RECEIVED IN BED, AO X 4, ABLE TO RESPONDS ALL STIMULI. IN NO ACUTE DISTRESS NOTED. RESPIRATORY EVEN AND UNLABORED ON ROOM AIR. SKIN IS WARM TO TOUCH, KEEP CLEAN/DRY. NO EPISODE OF LOSE BM DURING AT NIGHT ACCORDING NEGATIVE RETOUCHER. KEPT ELEVATED HOB FOR ENSURE AIRWAY AND ASPIRATION PRECAUTION, ALSO LOWEST POSITION OF THE BED, S/R UP X 3, BED ALARM IS ON AT ALL THE TIMES. ALL SAFETY PRECAUTION APPLIED. CALL LIGHT WITHIN REACH, WILL CONTINUE TO MONITOR.
--- NOTE | 2022-03-03 08:19 | NUR ---
PATIENT NOTICED MAGNESIUM LEVEL 0.[address] FERNANDES REGARDING ABOVE. PATIENT HAS ORDER MAGNESIUM 800MG PO BID SCHEDULE.
[2022-03-03] MEDS: POTASSIUM CHLORIDE 20 MEQ TAB.PRT.SR PO SCH (08:27)
[2022-03-03] MEDS: PANTOPRAZOLE 40 MG TABLET.DR PO SCH (08:28)
[2022-03-03] MEDS: MAGNESIUM OXIDE 400 MG TABLET PO SCH (08:28)
[2022-03-03] MEDS ORDERED: K PHOS NEUTRAL 250 MG TABLET PO ONE (11:00)
--- NOTE | 2022-03-03 15:34 | NUR ---
GIVEN DISCHARGE INSTRUCTION INCLUDE NEW MEDS; VANCOMYCIN 125MG PO, Q 6 X 7DAYS. ALSO INFORMED COME BACK IN 10DAYS FOR STITCHES REMOVE. PATIENT IN SABLE CONDITION. REMOVE IV SITE, WOUND PICTURES TAKEN.
== END 2022-03-03 15:30 | disposition home or self-care (01) | DRG 57 ==
LOC: ER 18:53 → ICU 22:06 → TELE 02-25 17:37 → MED 02-27 14:05
PROVIDERS: ADMIT Student in an Organized Health Care Education/Training Program; ATTEND Internal Medicine
PROC: 0HQ1XZZ Repair Face Skin, External Approach (ICD-10-PCS; principal; 2022-02-24)
PROC: 0HQ0XZZ Repair Scalp Skin, External Approach (ICD-10-PCS; 2022-02-24)
DX: S06.9X0A Unspecified intracranial injury without loss of consciousness, initial encounter (principal); N17.0 Acute kidney failure with tubular necrosis; G92.8 Other toxic encephalopathy; G93.41 Metabolic encephalopathy; L89.106 Pressure-induced deep tissue damage of unspecified part of back; A04.72 Enterocolitis due to Clostridium difficile, not specified as recurrent; E44.1 Mild protein-calorie malnutrition; L89.156 Pressure-induced deep tissue damage of sacral region; E87.2 Acidosis; L89.226 Pressure-induced deep tissue damage of left hip; E87.8 Other disorders of electrolyte and fluid balance, not elsewhere classified; E86.1 Hypovolemia; E87.1 Hypo-osmolality and hyponatremia; Z20.822 Contact with and (suspected) exposure to COVID-19; F10.10 Alcohol abuse, uncomplicated; Y90.0 Blood alcohol level of less than 20 mg/100 ml; N18.9 Chronic kidney disease, unspecified; Z59.00 Homelessness unspecified; E88.09 Other disorders of plasma-protein metabolism, not elsewhere classified; F15.10 Other stimulant abuse, uncomplicated; W19.XXXA Unspecified fall, initial encounter; Y92.9 Unspecified place or not applicable; Y99.9 Unspecified external cause status; E83.39 Other disorders of phosphorus metabolism; S01.111A Laceration without foreign body of right eyelid and periocular area, initial encounter; S01.01XA Laceration without foreign body of scalp, initial encounter
CPT/HCPCS: 36415; 36600; 70450-TC; 71045-TC; 72125-TC; 76770-TC; 76856-TC; 80048-TC; 80053-TC; 80076-TC; 81001; 82140-TC; 82533; 82570-TC; 82803-TC; 82962-TC; 83735-TC; 84100-TC; 84155-TC; 84295-TC; 84300-TC; 84443-TC; 85025-TC; 87081-TC; 90715; 92526; 92611-TC; 94799-TC; 97116-TC; 97530-TC; A6403; C9113; G0378; G0480; J1815; J3475; J3480; J3490; J7030; J7060

== ENCOUNTER 2022-03-11 07:31 | Emergency (ER) | payer MEDICAID ==
[~2022-03-11] VITALS: Ht 154.9 cm; Wt 60.8 kg
[~2022-03-11 07:31] MED LIST: ACET325T53 PO; NUTR113P PO; PANT40TA49 PO; VANC125C11 PO
[2022-03-11 07:39] VITALS: BP 119/82
--- NOTE | 2022-03-11 08:18 | NUR ---
Patient discharged to home in stable condition. Written and verbal after care instructions given. Patient verbalizes understanding of instruction.
== END 2022-03-11 08:18 | disposition home or self-care (01) ==
LOC: ER 07:32
DX: Z48.02 Encounter for removal of sutures (principal); S01.111D Laceration without foreign body of right eyelid and periocular area, subsequent encounter; S01.01XD Laceration without foreign body of scalp, subsequent encounter; Z59.00 Homelessness unspecified; Z79.899 Other long term (current) drug therapy; X58.XXXD Exposure to other specified factors, subsequent encounter

== ENCOUNTER 2022-04-10 16:16 | Emergency (ER) | payer SELFPAY ==
[~2022-04-10] VITALS: Ht 157.5 cm; Wt 65.8 kg
--- NOTE | 2022-04-10 16:30 | NUR ---
MICYP002, [employer] CALLED, PT SITTING IN BUSHES. ETOH. REQUESTING DETOX. THE PATIENT IS ALERT AND ORIENTED X3. IN ROOM AIR AND DENIES SOB. RESPIRATION REGULAR AND UNLABORED. WILL CONTINUE TO MONITOR THE PATIENT.
--- NOTE | 2022-04-10 17:26 | NUR ---
The patient is alert and oriented x3. In room air and denies SOB. Respiration regular and unlabored. Denies pain. Patient given written and verbal discharge instructions. Patient verbalizes understanding of instructions. Patient is ambulatory with steady gait. Refuses offer of detention placement. Patient given list of available shelters in surrounding area.
[2022-04-10 17:27] VITALS: BP 131/78
--- NOTE | 2022-04-10 17:29 | NUR ---
UNABLE TO DEPART THE PATIENT FROM [facility]
== END 2022-04-10 17:29 | disposition home or self-care (01) ==
LOC: ER 16:20
DX: F10.129 Alcohol abuse with intoxication, unspecified (principal); Z59.00 Homelessness unspecified; Z79.899 Other long term (current) drug therapy; Y90.9 Presence of alcohol in blood, level not specified

== ENCOUNTER 2022-09-10 13:39 | Emergency (ER) | payer SELFPAY ==
[~2022-09-10] VITALS: Ht 157.5 cm; Wt 63.5 kg
--- NOTE | 2022-09-10 14:00 | NUR ---
Unkempt/homeless. Reeks of Alcohol. UNSTEADY
[2022-09-10 15:02] LABS: BASOPHILS # (AUTO) 0.1 K/uL (0.0-0.2); BASOPHILS % (AUTO) 1.3 % (0.0-2.0); EOSINOPHILS % (AUTO) 0.2 % (0.0-6.0); HEMATOCRIT 33 % (39-51); HEMOGLOBIN 10.4 g/dL (13.5-17.5); LYMPHOCYTES # (AUTO) 2.2 K/uL (0.8-4.8); MEAN CORPUSCULAR HGB CONC 32 g/dl (31.0-36.0); MEAN CORPUSCULAR VOLUME 84 fL (80-96); MONOCYTES # (AUTO) 0.7 K/uL (0.1-1.30); NEUTROPHILS # (AUTO) 2.7 K/uL (1.8-8.9); NEUTROPHILS % (AUTO) 47.5 % (43.0-81.0); PLATELET COUNT (AUTO) 224 K/uL (150-450); RED BLOOD CELL COUNT(AUTO) 3.88 MIL/uL (4.5-6.0); WHITE BLOOD COUNT (AUTO) 5.8 K/uL (4.3-11.0)
[2022-09-10 15:18] LABS: ACETAMINOPHEN < 10 ug/ml (10-30); ALANINE AMINOTRANSFERASE 108 U/L (12-78); ALBUMIN 3.8 g/dL (3.4-5.0); ALCOHOL, BLOOD 358 mg/dL (0-0); ALKALINE PHOSPHATASE 77 U/L (46-116); ASPARTATE AMINOTRANSFERASE 223 U/L (15-37); BILIRUBIN,DIRECT 0.1 mg/dL (0.0-0.2); BILIRUBIN,TOTAL 0.3 mg/dL (0.2-1.0); CARBON DIOXIDE 29 mmol/L (21-32); CHLORIDE 96 mmol/L (98-107); GLUCOSE 94 mg/dL (74-106); POTASSIUM 3.7 mmol/L (3.5-5.1); SODIUM SERUM 135 mmol/L (136-145); TOTAL PROTEIN, SERUM 8.1 g/dL (6.4-8.2); UREA NITROGEN, BLOOD 12 mg/dL (7-18)
--- NOTE | 2022-09-10 15:56 | NUR ---
PT ATTACHED TO MONITOR.
[2022-09-10 20:54] LABS: BILIRUBIN,URINE NEGATIVE (NEGATIVE); COLOR,URINE YELLOW (YELLOW); LEUKOCYTE ESTERASE ,URINE NEGATIVE (NEGATIVE); NITRITE, URINE NEGATIVE (NEGATIVE); PROTEIN,URINE TRACE mg/dl (NEGATIVE); UGLUCOSE NEGATIVE (NEGATIVE); UROBILINOGEN,URINE 0.2 EU/dL (0.2)
[2022-09-10 20:57] LABS: BACTERIA,URINE None seen /HPF (None Seen); MUCUS,URINE Few /LPF (None Seen); RBC,URINE 0-2 /HPF (0-2); SQUAMOUS EPITHELIAL CELL,UR 0-2 /HPF (None Seen); WBC,URINE 0-2 /HPF (0-3)
--- NOTE | 2022-09-10 22:11 | NUR ---
PATIENT IS AWALE, ALERT AND OX4. VERBALLY RESPONSIVE. AMBULATORY WITH STEADY GAITS. DENIED SI/HI. PO INTAKE TOLERATED WELL. -N/V. REPORTED FEELING WELL AND WILLING TO LEAVE.
[2022-09-10] MEDS ORDERED: ONDANSETRON 4 MG TAB.RAPDIS ONE (22:23)
[2022-09-10] MEDS ORDERED: ONDANSETRON 4 MG TAB.RAPDIS SL ONE (22:30)
[2022-09-10] MEDS: ONDANSETRON 4 MG TAB.RAPDIS SL ONE ×2 (22:36→22:37)
--- NOTE | 2022-09-10 22:43 | NUR ---
Patient discharged in stable condition. Written and verbal after care instructions given. Patient verbalizes understanding of instruction.
[2022-09-10 22:44] VITALS: BP 149/98
== END 2022-09-10 22:44 | disposition home or self-care (01) ==
LOC: ER 13:42
DX: F10.129 Alcohol abuse with intoxication, unspecified (principal); Z59.00 Homelessness unspecified; Z79.899 Other long term (current) drug therapy; Y90.8 Blood alcohol level of 240 mg/100 ml or more
CPT/HCPCS: 99283; 85025; 80048; 80076; 83735; 81001; 36415; 80143; 80320; 80307; Q0162; G0480

== ENCOUNTER 2022-09-24 20:45 | Emergency (ER) | payer OTHER ==
[~2022-09-24] VITALS: Ht 157.5 cm; Wt 63.5 kg
--- NOTE | 2022-09-24 21:23 | NUR ---
Patient bibra from street, drunk. On room air, breathing evenly and unlabored. Ambulatory with steady gait. Kept comfortable, will continue to monitor accordingly.
--- NOTE | 2022-09-24 21:30 | NUR ---
URINE SPECIMEN COLLECTED AND SENT TO LAB.
[2022-09-24 21:41] VITALS: BP 130/74
--- NOTE | 2022-09-24 21:41 | NUR ---
Patient discharged to home in stable condition with a steady gait. Written and verbal after care instructions given. Patient verbalizes understanding of instruction.
== END 2022-09-24 21:41 | disposition home or self-care (01) ==
LOC: ER 20:50
DX: G89.29 Other chronic pain (principal); M79.606 Pain in leg, unspecified; F10.90 Alcohol use, unspecified, uncomplicated; Y90.9 Presence of alcohol in blood, level not specified